=== PATIENT | male | born 1990 ===

== ENCOUNTER 2017-10-15 10:33 | Emergency (ER) | payer SELFPAY ==
[2017-10-15] MEDS ORDERED: SUBLIMAZE IV ONE ×2 (11:01→11:17)
[2017-10-15] MEDS ORDERED: ZOFRAN ONE (11:02)
[2017-10-15] MEDS ORDERED: SUBLIMAZE ONE (11:02)
[2017-10-15] MEDS ORDERED: ZOFRAN IV ONE (11:04)
[2017-10-15] MEDS ORDERED: DIPRIVAN 10 MG/ML IV ONE ×3 (11:11→11:21)
--- NOTE | 2017-10-15 11:17 | XRay Report ---
LEFT SHOULDER: History: Deformity. Findings: Anterior, inferior dislocation of the left shoulder joint is identified. No obvious fracture. IMPRESSION: Dislocation.
[2017-10-15] MEDS ORDERED: AMIDATE IV ONE ×2 (11:25→11:26)
--- NOTE | 2017-10-15 12:12 | XRay Report ---
LEFT SHOULDER: History: Pain, dislocation. Routine views demonstrate normal bony and soft tissue structures with normal joint alignment of the shoulder. IMPRESSION: Normal study. The left shoulder dislocation has been reduced since earlier today at 1059 hrs.
--- NOTE | 2017-10-15 12:45 | Emergency Department Report ---
ED General Adult HPI - General Chief complaint: Extremity Injury, Upper Stated complaint: LEFT SHOULDER PAIN Time Seen by Provider: 10/15/17 10:59 Source: patient Mode of arrival: Ambulatory Limitations: No Limitations - History of Present Illness Initial comments: This is a 27-year-old male who fell off. He states that he did not injure anything besides his left shoulder. He fell on an outstretched arm and his shoulder apparently dislocated. He denies any impact to his head or hyper extension/flexion of his neck. He denies any neck or back pain. He denies any chest or abdominal discomfort. He's had no weakness or numbness in the extremities. Patient states he has no past medical history. He doesn't take any daily medicines. His last meal he states was last night except for coffee this morning. He has no allergies to medication. He has had no previous surgical procedures or experience with anesthesia. History was obtained by me in [place]. -: Sudden Location: left, upper extremity (shoulder) Radiation: non-radiation Severity scale (0 -10): 10 Quality: aching Consistency: constant Improves with: none Associated Symptoms: denies other symptoms Treatments Prior to Arrival: none - Related Data Previous Rx's Medication Instructions Recorded Last Taken Type HYDROcodone/ACETAMINOPHEN [[place] 1 each PO Q6H #7 tablet 10/15/17 Unknown Rx 5-325 Tablet] Allergies Allergy/AdvReac Type Severity Reaction Status Date / Time No Known Allergies Allergy Verified 10/15/17 10:38 ED Review of Systems ROS: Stated complaint: LEFT SHOULDER PAIN Other details as noted in HPI Constitutional: denies: chills, fever Eyes: denies: eye pain, eye discharge, vision change ENT: denies: ear pain, throat pain Respiratory: denies: cough, shortness of breath, wheezing Cardiovascular: denies: chest pain, palpitations Endocrine: no symptoms reported Gastrointestinal: denies: abdominal pain, nausea, diarrhea Genitourinary: denies: urgency, dysuria Musculoskeletal: denies: back pain, joint swelling, arthralgia Skin: as per HPI. denies: rash, lesions Neurological: denies: headache, weakness, paresthesias Psychiatric: denies: anxiety, depression Hematological/Lymphatic: denies: easy bleeding, easy bruising ED Past Medical Hx - Past Medical History Previous Medical History?: No - Surgical History Past Surgical History?: No - Social History Smoking Status: Unknown if ever smoked Substance Use Type: None - Medications Home Medications: Home Medications Medication Instructions Recorded Confirmed Last Taken Type HYDROcodone/ACETAMINOPHEN [[place] 1 each PO Q6H #7 tablet 10/15/17 Unknown Rx 5-325 Tablet] ED Physical Exam - General Limitations: No Limitations General appearance: alert, in no apparent distress - Head Head exam: Present: atraumatic, normocephalic - Eye Eye exam: Present: normal appearance. Absent: scleral icterus - ENT ENT exam: Present: mucous membranes moist - Neck Neck exam: Present: normal inspection - Respiratory Respiratory exam: Present: normal lung sounds bilaterally. Absent: respiratory distress - Cardiovascular Cardiovascular Exam: Present: regular rate, normal rhythm. Absent: systolic murmur, diastolic murmur, rubs, gallop - GI/Abdominal GI/Abdominal exam: Present: soft, normal bowel sounds. Absent: distended, tenderness, guarding, rebound, rigid - Rectal Rectal exam: Present: deferred - Extremities Exam Extremities exam: Present: other (patient with a palpable anterior dislocation of the left shoulder). Absent: full ROM - Back Exam Back exam: Present: normal inspection - Neurological Exam Neurological exam: Present: alert, oriented X3, CN II-XII intact, other ( neurovascular exam is intact). Absent: motor sensory deficit - Psychiatric Psychiatric exam: Present: normal affect, anxious - Skin Skin exam: Present: warm, dry, intact, normal color. Absent: rash ED Course Vital Signs 10/15/17 10/15/17 10/15/17 10:38 11:00 11:16 Temperature 94.2 F L 99.3 F Pulse Rate 84 Pulse Rate [ 70 Intra-Procedure ] Respiratory Rate Respiratory 24 Rate [Intra- Procedure] Blood Pressure 170/123 Blood Pressure 196/109 [Intra- Procedure] Blood Pressure [Right] O2 Sat by Pulse 97 Oximetry O2 Sat by Pulse 99 Oximetry [ Intra-Procedure ] 10/15/17 10/15/17 10/15/17 11:25 11:29 11:56 Temperature Pulse Rate 67 Pulse Rate [ 76 84 Intra-Procedure ] Respiratory 19 Rate Respiratory 16 20 Rate [Intra- Procedure] Blood Pressure Blood Pressure 198/115 184/114 [Intra- Procedure] Blood Pressure 140/96 [Right] O2 Sat by Pulse 97 Oximetry O2 Sat by Pulse 99 100 Oximetry [ Intra-Procedure ] - Moderate Sedation Indications: fracture/dislocation redu ASA Class: I Mallampati Airway Score: 1 Time of Last PO Intake: 10:00 (last night) Preparation: registered nurse cardiac telemetry applied, pulse oximeter, capnometry used, supplemental O2 applied, reversal agents at bedside, suction/airway equipment at bedside, IV secured Fentanyl: IV Fentanyl Dose: 150 IV Propofol Dose (mgs): 50 IV Etomidate Dose (mgs): 6 Complications: none Interventions: oxygen applied (prior to procedure) Patient Tolerated Procedure: well - Orthopedic Joint Reduction Joint #1 Consent Obtained: verbal consent Time Out Performed: Yes Side: left Joint Reduction Location: shoulder Analgesia: moderate sedation Shoulder Technique Used (if applicable): other (modified Estrella manuever) Post-Reduction Vascular Exam: intact Post Reduction X-Ray Obtained: Yes Post Reduction X-Ray Results: reduced Splint Applied: No (sling) Patient Tolerated Procedure: well ED Medical Decision Making - Radiology Data interpreted by me: X-rays show anterior dislocation and relocation of the left shoulder. No fracture seen. Critical care attestation.: If time is entered above; I have spent that time in minutes in the direct care of this critically ill patient, excluding procedure time. ED Disposition Clinical Impression: Anterior dislocation of left shoulder Qualifiers: Encounter type: initial encounter Qualified Code(s): S43.015A - Anterior dislocation of left humerus, initial encounter Disposition: TO HOME OR SELFCARE Is pt being admited?: No Does the pt Need Aspirin: No Condition: Stable Instructions: Shoulder Dislocation (ED) Additional Instructions: Sling next 24-48 hours. Do not stress shoulder. Rx needed for pain or urinary try [id number] medication. Follow-up with orthopedist referral. Prescriptions: HYDROcodone/ACETAMINOPHEN [[place] 5-325 Tablet] 1 each PO Q6H #7 tablet Referrals: PRIMARY MD OSCAR [Primary Care Provider] - 3-5 Days CHRISTIANO RAMOS MD [Staff Physician] - 3-5 Days Time of Disposition: 12:51
[2017-10-15 13:54] VITALS: BP 136/78
== END 2017-10-15 13:54 | disposition home or self-care (01) ==
LOC: ED 10:33
DX: S43.005A Unspecified dislocation of left shoulder joint, initial encounter (principal); W18.30XA Fall on same level, unspecified, initial encounter; Y93.89 Activity, other specified; Y92.89 Other specified places as the place of occurrence of the external cause; Y99.8 Other external cause status
CPT/HCPCS: 23650; 73020; 73030; 96374; 99284; J2405; J2704; J3010